=== PATIENT | female | born 1975 | race Caucasian/White ===

== ENCOUNTER → 2018-03-21 12:36 | Outpatient (CLI) | payer BC, SELFPAY ==
--- NOTE | 2018-03-21 12:55 | XR_ITS ---
XR shoulder RT min 2V Ordering Physician: Shellie Browne MD Patient Age: 42 years: Female HISTORY: ITS.REASON: BICEPS TENDONITIS ON RIGHT fell 2 months ago TECHNIQUE: 3 view right shoulder COMPARISON : FINDINGS Glenohumeral joint is intact.. AC joint appears intact and unremarkable as well There is roughening at the cap of the greater tuberosity which reflects degenerative changes and likely sequela of impingement . The slightly long acromion has slight downward sloping on the frontal projection which may contribute to such. Minor degenerative facet changes lower C-spine. IMPRESSION: ......... . No fracture or acute findings. Glenohumeral joint and AC joint intact Roughening at cap of greater tuberosity.-With Tip of the downward sloping of acromion resides just above this. This anatomy may lend itself to impingement symptoms & sequela
== END ==
PROVIDERS: PCP Family Medicine; Visit Provider Family Medicine
DX: M75.21 Bicipital tendinitis, right shoulder (principal)
CPT/HCPCS: 73030

== ENCOUNTER → 2018-04-29 08:36 | Outpatient (CLI) | payer BC, SELFPAY ==
--- NOTE | 2018-04-29 08:40 | MM_ITS ---
MM Dig screening mamm BI w/CAD CAD Screening COMPARISON: Digital mammograms with CAD 12/17/2016 and 08/15/2015 INDICATION: There is a history of breast cancer patient maternal aunt. TECHNIQUE: Standard CC and MLO images were obtained. R2 CAD reviewed. FINDINGS: Moderate fibroglandular densities are seen in the subareolar regions of both breast. In addition there are stable nodular densities near the axilla tail is of both breast. These are likely intramammary nodes. There are few benign-appearing calcifications in each breast. There is no new or suspicious lesion in either breast and there are no suspicious microcalcifications. IMPRESSION: Stable exam no suspicious lesion seen BI-RADS Category: 2 Benign Finding(s) RECOMMENDED FOLLOW-UP: 1YR - 1 YEAR FOLLOW-UP (A letter has been sent to the patient regarding results of the study.)
== END ==
PROVIDERS: PCP Family Medicine; Visit Provider Nurse Practitioner Obstetrics & Gynecology
DX: Z12.31 Encounter for screening mammogram for malignant neoplasm of breast (principal)
CPT/HCPCS: 77067

== ENCOUNTER → 2019-10-12 08:35 | Outpatient (CLI) | payer BC, SELFPAY ==
--- NOTE | 2019-10-12 08:35 | MM_ITS ---
PROCEDURE: MM DIG SCREENING MAMM BI W/CAD Digital Breast Tomosynthesis Included CLINICAL INDICATION: screening xmg There is a history of breast cancer in the patient's maternal aunt. There has been a 80 lb weight loss since previous bariatric surgery November 2018. COMPARISON: [facility] DIG MAMM-SCREEN JIMMY from 08/15/2015 [facility] DIG MAMM-SCREEN JIMMY W/CAD from 12/17/2016 [facility] MM Dig screening mamm BI w/CAD from 04/29/2018 TECHNIQUE: Standard CC and MLO images and 3D Tomosynthesis was obtained. R2 CAD reviewed. FINDINGS: Moderate scattered somewhat heterogenic fibroglandular densities are seen in both breasts. There are stable nodular densities in the axillary tail and upper central portion right breast and similar densities near the axillary tail left breast likely intramammary nodes. There is mild ductal hyperplasia in the subareolar regions bilaterally and this has been noted previously. There are few scattered benign-appearing microcalcifications in each breast. There is faint vascular calcification in each breast. There is no suspicious lesion and no suspicious microcalcifications. IMPRESSION: Mild to moderate heterogenic breast density with no suspicious lesions seen BI-RAD Category: 2 Benign Finding(s) FOLLOW-UP: 1YR 1 Year Follow-up (A letter has been sent to the patient regarding results of the study.) Dictated by: Dr. Henrry Corley MD 10/12/2019 12:[address] Henrry Corley MD in [place] 10/12/2019 12:32
== END ==
PROVIDERS: PCP Family Medicine; Visit Provider Nurse Practitioner Obstetrics & Gynecology
DX: Z12.31 Encounter for screening mammogram for malignant neoplasm of breast (principal)
CPT/HCPCS: 77063; 77067

== ENCOUNTER → 2019-11-23 08:10 | Outpatient (POV) | payer BC, SELFPAY | PROVIDERS: PCP Family Medicine; Visit Provider Dermatology | DX: Z00.00 Encounter for general adult medical examination without abnormal findings (principal) ==

== ENCOUNTER → 2021-05-09 16:50 | Outpatient (CLI) | payer BC, SELFPAY | PROVIDERS: PCP Family Medicine; Visit Provider Nurse Practitioner | DX: U07.1 COVID-19 (principal) | CPT/HCPCS: C9803; U0003; U0005 ==

== ENCOUNTER → 2021-05-15 13:50 | Outpatient (CLI) | payer BC, SELFPAY | PROVIDERS: Visit Provider Nurse Practitioner | DX: U07.1 COVID-19 (principal) | CPT/HCPCS: C9803; U0003; U0005 ==

== ENCOUNTER → 2021-07-31 07:59 | Outpatient (CLI) | payer BC, SELFPAY ==
--- NOTE | 2021-07-31 08:00 | MM_ITS ---
PROCEDURE INFORMATION: Exam: MG Bilateral Screening 3D Mammography Exam date and time: 07/31/2021 7:57 AM Age: 46 years old Clinical indication: Encounter for screening mammogram for malignant neoplasm of breast. Maternal aunt and paternal aunt had breast cancer. TECHNIQUE: Imaging protocol: Bilateral Screening tomosynthesis and 2D mammography including computer-aided detection (CAD) when performed. COMPARISON: 1. MG MM DIG SCREENING MAMM BI W/CAD 10/12/2019 8:38 AM 2. MG [facility] MM Dig screening mamm BI w/CAD 04/29/2018 8:59 AM 3. MG [facility] DIG MAMM-SCREEN JIMMY W/CAD 12/17/2016 8:35 AM 4. MG [facility] DIG MAMM-SCREEN JIMMY 08/15/2015 8:25 AM FINDINGS: MAMMOGRAPHY: Breast composition: The breast tissue is heterogeneously dense, which may obscure small masses. Mass: No suspicious masses. Architectural distortion: None. Calcifications: No suspicious calcifications. Asymmetric density: None. Skin thickening: None. Axillary adenopathy: Stable borderline thickened bilateral axillary nodes since 04/29/2018. Other: Stable bilateral dilated retroareolar ducts on both sides. IMPRESSION: No mammographic evidence of malignancy. Annual screening is recommended unless otherwise clinically indicated. ASSESSMENT: BI-RADS Category 2: Benign
== END ==
PROVIDERS: PCP Family Medicine; Visit Provider Nurse Practitioner Obstetrics & Gynecology
DX: Z12.31 Encounter for screening mammogram for malignant neoplasm of breast (principal)
CPT/HCPCS: 77063; 77067

== ENCOUNTER → 2021-11-06 15:08 | Outpatient (POV) | payer BC, SELFPAY | PROVIDERS: Visit Provider Dermatology | DX: Z00.00 Encounter for general adult medical examination without abnormal findings (principal) ==

== ENCOUNTER → 2022-03-09 10:21 | Outpatient (CLI) | payer BC, SELFPAY ==
[2022-03-09 11:11] LABS: Hemoglobin A1C 5.4 % (4.0-6.0)
[2022-03-09 11:18] LABS: Chloride 102 mmol/L (98-107); Potassium 4.2 mmoL/L (3.5-5.1); Sodium 140 mmol/L (136-145)
[2022-03-09 11:21] LABS: Alanine Aminotransferase 23 U/L (12-78); Albumin Level 4.1 g/dl (3.5-5.0); Albumin/Globulin Ratio 1.4 (1.1-1.8); Alkaline Phosphatase 110 U/L (38-126); Anion Gap 15.2 mEq/L (5-15); Aspartate Amino Transferase 22 U/L (14-36); Bilirubin,Total 0.5 mg/dl (0.2-1.3); Blood Urea Nitrogen 13 mg/dl (7-17); Calcium 9.5 mg/dl (8.4-10.2); Carbon Dioxide 27 mmol/L (22.0-30.0); Estimated Glomerular Filt Rate 90 ml/min (>60); GFR (African American) 109 ML/MIN (>60); Glucose 85 mg/dl (74-100); Iron 127 ug/dL (37-170); Total Protein,Serum 7.1 g/dl (6.3-8.2)
[2022-03-09 11:30] LABS: Total Iron Binding Capacity 280 ug/dL (265-497)
[2022-03-09 11:38] LABS: Triiodothryronine (T3) Uptake 30 % (23.5-40.5)
[2022-03-09 11:39] LABS: Free Thyroxine Index 2.6 ug/dL (5.93-13.13); T4 (Thyroxine) 8.6 ug/dl (5.53-11.0)
[2022-03-09 11:52] LABS: Thyroid Stimulating Hormone 2.02 uIU/mL (0.465-4.68)
[2022-03-09 12:04] LABS: Basophils # 0.1 K/mm3 (0-0.2); Basophils % 1.2 % (0.1-2.0); Eosinophils # 0.4 K/mm3 (0.0-0.4); Eosinophils % 3.1 % (0.1-12.0); Hematocrit 45.9 % (37.0-47.0); Hemoglobin 14.6 g/dL (12.2-16.2); Lymphocytes # 2.2 K/mm3 (0.7-4.5); Lymphocytes % 19.6 % (10-50); Mean Corpuscular HGB Conc 31.8 g/dL (31.8-35.4); Mean Corpuscular Hemoglobin 29.9 pg (27.0-31.2); Mean Corpuscular Volume 94.1 fl (81-99); Mean Platelet Volume 9.1 fl (7.4-10.4); Monocytes # 0.5 K/mm3 (0.1-1.0); Monocytes % 4.7 % (1.7-9.3); Neutrophils # 8.1 K/mm3 (1.8-7.8); Neutrophils % 71.4 % (37.0-80.0); Platelet Count 342 K/mm3 (142-424); Red Blood Count 4.88 M/mm3 (4.20-5.40); Red Cell Distribution Width 13.3 % (11.5-17.5); White Blood Count 11.3 K/mm3 (4.8-10.8)
[2022-03-09 12:28] LABS: Vitamin B12 718 pg/mL (239-931)
[2022-03-10 08:09] LABS: Prolactin 12.3 ng/mL (4.8-23.3); Thyroid Peroxidase Antibodies 11 IU/mL (0-34)
[2022-03-12 22:11] LABS: Testosterone, Total, LC/MS 19.1 ng/dL (.)
[2022-03-17 18:42] LABS: 1,25 Dihydroxy Vitamin D 44 pg/mL (.); 1,25-Dihydroxy, Vitamin D-2 <10 pg/mL (.); 1,25-Dihydroxy, Vitamin D-3 44 pg/mL (.)
== END ==
PROVIDERS: PCP Family Medicine; Visit Provider Nurse Practitioner Psychiatric/Mental Health
DX: Z00.00 Encounter for general adult medical examination without abnormal findings (principal); Z79.899 Other long term (current) drug therapy; R53.83 Other fatigue
CPT/HCPCS: 36415; 80053; 82607; 82652; 83036; 83540; 83550; 84146; 84402; 84403; 84436; 84443; 84479; 85025; 86376; 87275; 87276

== ENCOUNTER 2022-05-12 16:08 | Emergency (ER) | payer BC, SELFPAY ==
[2022-05-12 16:30] VITALS: BP 114/78; PULSE 119; RESP 19; TEMP 36.8; O2SAT 98; BMI 38.9
[2022-05-12 16:46] LABS: UTC Influenza A Antigen Negative (Negative); UTC Influenza B Antigen Negative (Negative)
--- NOTE | 2022-05-12 16:47 | EXP.UTC ---
Discharge Plan Disposition Patient Disposition: Home, Self-Care Condition: Good Prescriptions Prescriptions: New promethazine 25 mg tablet 25 mg PO TID PRN (Reason: nausea and vomiting) Qty: 10 0RF No Action Mirena 20 mcg/24 hr (5 years) intrauterine device 20 mcg INTRAUTERI ONCE levocetirizine 5 mg tablet 5 mg PO Label Comments: TAKE 1 TABLET BY MOUTH ONCE DAILY omeprazole 20 mg capsule,delayed release(DR/EC) 20 mg PO Trintellix 10 mg tablet 10 mg PO .COMPLEX Qty: 30 1RF Rx Instructions: 10 mg PO take 1/2 tablet for 10 days; then increase to 1 tablet; vitamin B complex Capsule 1 cap PO DAILY calcium carbonate [Calcium 600] 600 mg calcium (1,500 mg) tablet 600 mg PO DAILY cholecalciferol (vitamin D3) 1,000 UNIT capsule 1,000 unit PO DAILY Referrals Follow up/Referrals: Adolfo Granados MD [Primary Care Provider] - See instructions Activity Restrictions/Add. Instructions Additional Instructions/Restrictions: Drink extra fluids with and between meals. If you have difficulty drinking, try very small amounts of water or suck on ice chips. ? Avoid fruit juices, as these do not replace minerals and can actually increase diarrhea. ? Children and adults can use sports drinks to replenish electrolytes. Younger children and infants should use products formulated for children, like oral rehydration solutions. ? Eat food in small amounts and let your stomach recover. ? Get lots of rest. You may feel tired or weak. ? No greasy or fried foods for the next 24-48 hours BRAT diet Bananas Rice Apples and [place] ? Make sure to drink plenty of liquids ? Return if needed ? Straight to ER if any life threatening symptoms ? Zofran as prescribed ? You was given an outpatient order for diarrhea panel, please collect specimen and bring back to outpatient lab then call back to the [facility] or follow up with family doctor for results ? Follow up with family doctor in the next 48-72 hours if no improvement or any worsening of symptoms Clinical Impressions Clinical Impression: Nausea vomiting and diarrhea Instructions Patient Instructions: Diarrhea, Nausea and Vomiting-Adult, Promethazine Discharge ED Provider: Judy Del Rio [facility] General Stated complaint: nausea, D/V Mode of Arrival: Ambulatory Source of Information: Patient Limitations: No Limitations Time Seen by Provider: 05/12/22 16:47 Description of Symptoms (Recalled from Triage Doc. by RN): PATIENT C/O VOMITING AND DIARRHEA THAT STARTED YESTERDAY HEENT Symptoms (Recalled from RN notes): No Resp Symptoms (Recalled from RN notes): No Skin Symptoms (Recalled from RN notes): No MS Symptoms (Recalled from RN notes): No Functional Status (Recalled from RN notes): WNL History of Present Illness Provider Complaint: Patient states that she thinks she either has the stomach bug or the flu States that she started yesterday with N/V/D and has continued to have it into today States that she is feeling a little better but still having nausea and not able to keep anything down Related Data Home Medications Medication Instructions Recorded Confirmed cholecalciferol (vitamin D3) 25 1,000 unit PO DAILY Supplement 09/21/17 04/17/22 mcg (1,000 unit) capsule levonorgestrel 20 mcg/24 hours (8 20 mcg intrauterine ONCE 05/08/18 04/17/22 yrs) 52 mg intrauterine device control (Mirena) levocetirizine 5 mg tablet 5 mg PO 10/29/19 04/17/22 omeprazole 20 mg capsule,delayed 20 mg PO 10/29/19 04/17/22 release calcium carbonate 600 mg calcium 600 mg PO DAILY 07/31/21 04/17/22 (1,500 mg) tablet (Calcium) vitamin B complex 1 cap PO DAILY 07/31/21 04/17/22 Previous Rx's Medication Instructions Recorded vortioxetine 10 mg tablet 10 mg PO .COMPLEX #30 tabs 04/12/22 (Trintellix) promethazine 25 mg tablet 25 mg PO TID PRN nausea and
[2022-05-12 17:30] VITALS: BP 114/78; PULSE 119; RESP 19; TEMP 36.8; O2SAT 98
[2022-05-12 17:44] LABS: Adenovirus F 40/41, stool Not Detected (NotDetected); Astrovirus Not Detected (NotDetected); Campylobacter Not Detected (NotDetected); Cryptosporidium Not Detected (NotDetected); Cyclospora Cayetanesis Not Detected (NotDetected); Entamoeba histolytica Not Detected (NotDetected); Enteroaggregative E coli Not Detected (NotDetected); Enteropathogenic E coli Not Detected (NotDetected); Enterotoxigenic E coli Not Detected (NotDetected); Giardia lamblia Not Detected (NotDetected); Plesimonas Shigalloides, PCR Not Detected (NotDetected); Rotavirus A Not Detected (NotDetected); Salmonella, PCR Not Detected (NotDetected); Sapovirus Not Detected (NotDetected); Shiga-like toxin E coli Not Detected (NotDetected); Shigella Enterovasive E coli Not Detected (NotDetected); Vibrio Cholerae Not Detected (NotDetected); Vibrio, PCR Not Detected (NotDetected); Yersinia Entercolitica, PCR Not Detected (NotDetected)
[2022-05-12 22:06] LABS: Clostridium Difficile A/B, PCR Detected (NotDetected); Norovirus Detected (NotDetected)
== END 2022-05-12 17:34 | disposition home or self-care (01) ==
PROVIDERS: Emergency Provider Nurse Practitioner; PCP Family Medicine
DX: R11.2 Nausea with vomiting, unspecified (principal)
CPT/HCPCS: 87507; 87804; 99212; 99213; G0463

== ENCOUNTER 2023-06-24 14:09 | Outpatient (CLI) | payer BC, SELFPAY ==
[2023-06-24 14:35] LABS: Basophils % 0.4 % (0.1-2.0); Eosinophils # 0.4 K/mm3 (0.0-0.4); Eosinophils % 3.3 % (0.1-12.0); Hematocrit 45.5 % (37.0-47.0); Hemoglobin 15.3 g/dL (12.2-16.2); Lymphocytes # 3.5 K/mm3 (0.7-4.5); Mean Corpuscular HGB Conc 33.7 g/dL (31.8-35.4); Mean Corpuscular Hemoglobin 31.1 pg (27.0-31.2); Mean Corpuscular Volume 92.4 fl (81-99); Mean Platelet Volume 8.4 fl (7.4-10.4); Monocytes # 0.6 K/mm3 (0.1-1.0); Monocytes % 4.9 % (1.7-9.3); Neutrophils # 7.9 K/mm3 (1.8-7.8); Neutrophils % 63.4 % (37.0-80.0); Platelet Count 296 K/mm3 (142-424); Red Blood Count 4.92 M/mm3 (4.20-5.40); Red Cell Distribution Width 13.2 % (11.5-17.5); White Blood Count 12.5 K/mm3 (4.8-10.8)
[2023-06-24 15:07] LABS: Chloride 107 mmol/L (98-107); Potassium 4.4 mmoL/L (3.5-5.1); Sodium 138 mmol/L (136-145)
[2023-06-24 15:09] LABS: Alanine Aminotransferase 30 U/L (12-78); Anion Gap 6.4 mEq/L (5-15); Aspartate Amino Transferase 26 U/L (14-36); Bilirubin,Unconjugated 0.1 mg/dL (0.0-1.1); Blood Urea Nitrogen 13 mg/dl (7-17); Carbon Dioxide 29 mmol/L (22.0-30.0); Estimated Glomerular Filt Rate 89 ml/min (>60); GFR (African American) 108 ML/MIN (>60)
[2023-06-24 15:10] LABS: Albumin Level 4.2 g/dl (3.5-5.0); Alkaline Phosphatase 107 U/L (38-126); Bilirubin,Direct 0.3 mg/dl (0.0-0.4); Bilirubin,Indirect 0.1 mg/dL (0.0-0.9); Bilirubin,Total 0.4 mg/dl (0.2-1.3); Calcium 9.3 mg/dl (8.4-10.2); Chol/HDL Ratio 5.9 (1-3.5); Cholesterol 219 mg/dl (140-200); Glucose 95 mg/dl (74-100); HDL Cholesterol 37 mg/dl (40-60); Magnesium 1.9 mg/dl (1.6-2.3); Total Protein,Serum 7.4 g/dl (6.3-8.2); Triglycerides 197 mg/dl (30-150); VLDL Cholesterol 39 mg/dL (0-40)
[2023-06-24 15:21] LABS: Direct LDL Cholesterol 135.87 mg/dL (100-129)
[2023-06-24 15:25] LABS: Free T4 (Free Thyroxine) 0.85 ng/dl (0.78-2.19)
[2023-06-24 15:41] LABS: Thyroid Stimulating Hormone 2.01 uIU/mL (0.465-4.68)
== END 2023-06-24 23:59 ==
LOC: LAB 14:10
PROVIDERS: PCP Family Medicine; Visit Provider Internal Medicine
DX: R00.2 Palpitations (principal); R06.00 Dyspnea, unspecified; R42 Dizziness and giddiness; R94.31 Abnormal electrocardiogram [ECG] [EKG]
CPT/HCPCS: 36415; 80048; 80061; 80076; 83735; 84439; 84443; 85025; 93270

== ENCOUNTER 2023-07-09 07:16 | Outpatient (CLI) | payer BC, SELFPAY ==
--- NOTE | 2023-07-09 07:19 | CA_ITS ---
APPROVED REPORT EXAM: Comprehensive 2D, Doppler, and color-flow Echocardiogram Alcohol Law Enforcement Agent: CHRSI Burt, RVS Ht: 5 ft 10 in Wt: 282lbs BSA: 2.42 BP: 141/83 mmHg Indications: Abn EKG, Palpitations,Smoker, SOB Echo Enhancing Agent Comments: Poor acoustics throughout exam due to patient factors 2D Dimensions IVSd 1.38 cm LVEF (Visual) 79.70 % PWd 0.97 cm LA Volume 73.00 mL LVDd 5.26 cm LA Volume Index 30.618323 mL/m2 (M/F) 16-34 LVDs 2.70 cm Left Atrium 3.83 cm M-Mode Dimensions LA Diam 3.75 cm (1.9-4.0) EPSs 0.72 cm LV Diastology E Decel Time 210 (160-240 msec) E/A Ratio 1.41 Aortic Valve PIEDAD Index 0.85 cm2/m2 AoV Peak Danny. 138.0 (50-130 cm/s) AO Peak GR. 7.70 mmHg AO Mean GR. 3.90 (<5 mmHg) AO VTI 30.3 (18-25 cm) PIEDAD (VTI) 2.11 (2.5-4.5 cm2) Mitral Valve MV A Velocity 66.0 (40-130 cm/s) E/A Ratio 1.41 Left Ventricle The left ventricle is normal size. The left ventricular systolic function is normal. The left ventricular ejection fraction is within the normal range. There is normal left ventricular wall thickness. There is normal LV segmental wall motion. The left ventricular diastolic function is normal. LVEF is 60%. Right Ventricle The right ventricle is normal size. The right ventricular systolic function is normal. Atria The left atrium size is normal. The right atrium size is normal. There is no Doppler evidence of interatrial shunt. Aortic Valve The aortic valve opens well. There is no aortic valvular stenosis. No aortic regurgitation is present. Mitral Valve The mitral valve is normal in structure. No evidence of mitral valve stenosis. Trace mitral regurgitation. Tricuspid Valve The tricuspid valve leaflets are thin and pliable. Trace tricuspid regurgitation. There is insufficient TR jet to estimate RVSP. Pulmonic Valve The pulmonary valve is normal in structure. Trace pulmonic regurgitation. Great Vessels The aortic root is normal in size. The ascending aorta is normal in size. IVC is normal in size and collapses >50% with inspiration. Pericardium There is no pericardial effusion. Other Information Study Quality: Fair Conclusion Normal biventricular systolic function. No significant valvular stenosis or regurgitation. Electronically signed by : Ade Alcaraz MD 07/12/2023 00:23:24
--- NOTE | 2023-07-09 08:35 | CT_ITS ---
APPROVED REPORT Sliding Joint Maker: CLINICAL INDICATION Chest Pain TECHNIQUE Image Acquisition: A 128 slice MDCT scanner ([employer]) was used for data acquisition. A noncontrast coronary calcium scan was performed. A CT attenuation threshold of 130 Hounsfield units (HU) was used for the detection of calcium in contiguous voxels of 1 sq mm in area to be counted as individual lesions. Bolus tracking in the ascending aorta with a threshold of 180 HU was performed. Immediately afterwards, ECG synchronized cardiac CT was then performed from the cardiac base to apex using retrospective gating with ECG tube current modulation. A total of 85 mL of Isovue 370 mg/mL contrast medium was administered at 5 mL/sec followed by a saline flush using a biphasic injection protocol. A tube voltage of 120 KVp was used. The patient received the following medications prior to the cardiac CT. 25 mg of oral metoprolol 0.8 mg of sublingual nitroglycerin The average heart rate at the time of acquisition was 60 bpm and regular. Image Reconstruction Transaxial images were reconstructed at 0.67 mm slide thickness. Data was reviewed interactively on an advanced workstation capable of 2 and 3-dimensional displays in all conventional reconstruction formats, including multiplanar reformations, maximum intensity projections, curved multiplanar reformations, and volume rendered reconstructions. When applicable, selected routine images describing the relevant coronary anatomy and pathology were saved and sent to PACS. Complications None Technical Quality Overall image quality was good. Coronary artery opacification was adequate. Total DLP (Dose-Length Product) is 1405.7 mGy-cm. The reported value represents the total of one or more individual components during the CT acquisition of this date and at this time, and as such, the same value may appear in more than one CT report depending on the interpreting/reporting physicians. COMPARISON None FINDINGS CT Coronary Calcium Scoring LMA (Left Main Artery) = 0 LAD (Left Anterior Descending) = 0 LCX (Left Coronary Circumflex) = 0 RCA (Right Coronary Artery) = 0 Total Calcium Score = 0 using the AJ-130 method. The interpretation of the calcium heart score is based on the following continuum*: 0 = no calcified plaque detected (risk of coronary artery disease is very low ??? less than 5%) 1-10 = calcium detected in extremely minimal levels (risk of coronary diseases is still low ??? less than 10%) 11-100 = mild levels of plaque detected with certainty (mild or minimal narrowing of heart arteries is likely) 101-400 = definite,at least moderate levels of plaque detected (relatively high risk of a heart attack within 3-5 years) >401-999 = extensive levels of plaque detected (high risk of heart attack, high levels of vascular disease are present, high likelihood of at least one significant coronary narrowing) *The calcium heart score quantifies the burden of coronary calcification/plaque in the coronary arteries. The calcium heart score is not able to evaluate the presence or burden of non-calcified (i.e. soft) plaque. There is no identifiable calcification in the aortic valve, mitral annulus or mitral valve, pericardium, or myocardium. Coronary CT Angiography The coronary arterial system is right dominant. Quantitative Stenosis Grading: Left Main (LM): The left main originates normally from the left sinus of Valsalva. The LM bifurcates into the left anterior descending artery and left circumflex artery. The LM is patent with no evidence of atherosclerosis. Left Anterior Descending (LAD) and Diagonal Branches: The LAD gives off 4 diagonal branch. The LAD and its branches are patent with no evidence of atherosclerosis. There is no evidence of LAD-myocardial bridge. Left Circumflex (LCX) and Obtuse Marginals (OM): The LCX gives off 1 Obtuse Marginal (OM) branch. The LCX and its branches are patent with no evidence of atherosclerosis. Right Coronary Artery (RCA): The RCA originates normally from the right sinus of Valsalva. The RCA gives off a posterior descending artery (PDA) and posterolateral (PL) branches. The RCA and its branches are patent with no evidence of atherosclerosis. Non-Coronary Cardiac Findings: Analysis of the left ventricular (LV) structure and function was performed after 3-D reconstruction of the LV from axial images, with user-corrected automatic contouring for assessment of LV volumes and user-defined reconstruction from oblique planes for measurement of 3-D cardiac structure and function. -The left ventricle systolic function is normal. -There is no left atrial appendage filling defect. Two right pulmonary veins and two left pulmonary veins drain normally into the left atrium. -No pericardial thickening or calcification. -Central and branch pulmonary arteries in the [id number] are unremarkable. -Thoracic aorta within the visualized thoracic aortic-branches in the [id number] is unremarkable. Extracardiac Structures No significant extra-cardiac findings. Note, however, that this study is focused on the cardiac findings. IMPRESSION -No coronary calcification with an Agatston score = 0 using the AJ-130 method. -No evidence of significant flow-limiting atherosclerosis of the coronary arteries. -No evidence of coronary anomalies or myocardial bridges. -CAD-RADS 0. Management recommendations per ACC/AHA guidelines*, as clinically appropriate. *Recommendations: CAD RADS 0: Reassurance. Consider non-atherosclerotic causes of chest pain. CAD RADS 1: Consider non-atherosclerotic causes of chest pain. Consider preventive therapy and risk factor modification. CAD RADS 2: Consider non-atherosclerotic causes of chest pain. Consider preventive therapy and risk factor modification, particularly for patients with nonobstructive plaque in multiple segments. CAD RADS 3: Consider further functional testing. Consider symptom-guided anti-ischemic and preventive pharmacotherapy as well as risk factor modification per published guideline statements. CAD RADS 4A: Consider further functional testing or invasive coronary angiography with revascularization per published guideline statements. Consider symptom-guided anti-ischemic and preventive pharmacotherapy as well as risk factor modification per published guideline statements. CAD RADS 4B: Invasive coronary angiography recommended with revascularization per published guideline statements. Consider symptom-guided anti-ischemic and preventive pharmacotherapy as well as risk factor modification per published guideline statements. CAD RADS 5: Consider invasive angiography and/or viability assessment with revascularization per published guideline statements. Consider symptom-guided anti-ischemic and preventive pharmacotherapy as well as risk factor modification per published guideline statements. CRITICAL RESULT None COMMUNICATION Per this written report The coronary and cardiac findings of this CCTA were reviewed, reported, and signed by Demetris Alcaraz MD (Loading Inspector) Conclusion Electronically signed by : Ade Alcaraz MD 07/11/2023 23:15:05
[2023-07-09 08:50] VITALS: BMI 45.1
[2023-07-09] MEDS: METOPROLOL TARTRATE 25MG TABLET *IVABRADINE+METOPROLOL REGIMINE 25 MG PO (09:05)
[2023-07-09 09:37] LABS: Urine Pregnancy, HCG Qual. Negative (Negative)
[2023-07-09 10:00] VITALS: BP 138/92; PULSE 72; RESP 16; O2SAT 98
[2023-07-09] MEDS: NITROGLYCERIN 0.4MG SL TABLET 0.800000000000000044 MG SL (10:00)
[2023-07-09 10:03] VITALS: BP 131/85
[2023-07-09 10:10] VITALS: BP 106/65; PULSE 64; RESP 16; O2SAT 97
[2023-07-09] MEDS: IOPAMIDOL-370 (76%);100ML BOTTLE 85 ML IV (10:16)
[2023-07-09] MEDS: 0.9 % SODIUM CHLORIDE 50 ML VIAL IV (10:17)
[2023-07-09] MEDS: SODIUM CHLORIDE 0.9% 10ML SYR (RAD ONLY) 10 ML IV (10:17)
[2023-07-09 10:20] VITALS: BP 131/87; PULSE 60; RESP 16; O2SAT 98
== END 2023-07-09 10:36 | disposition home or self-care (01) ==
LOC: RT 07:18 → RAD 08:58
PROVIDERS: PCP Family Medicine; Visit Provider Internal Medicine
DX: R06.00 Dyspnea, unspecified (principal); R00.2 Palpitations; R42 Dizziness and giddiness; R94.31 Abnormal electrocardiogram [ECG] [EKG]
CPT/HCPCS: 75571; 75574; 81025; 93306; Q9967

== ENCOUNTER 2023-07-29 07:56 | Outpatient (CLI) | payer BC, SELFPAY ==
--- NOTE | 2023-07-29 08:11 | MM_ITS ---
PROCEDURE INFORMATION: Exam: MG Bilateral Screening 3D Mammography Exam date and time: 07/29/2023 8:01 AM Age: 48 years old Clinical indication: Screening examinationmammogram TECHNIQUE: Imaging protocol: Bilateral Screening tomosynthesis and 2D mammography including computer-aided detection (CAD) when performed. COMPARISON: No relevant prior studies available. FINDINGS: MAMMOGRAPHY: Breast composition: The breasts are heterogeneously dense, which may obscure small masses. Mass: None. Architectural distortion: None. Calcifications: No suspicious calcifications. Asymmetric density: None. Skin thickening: None. Axillary adenopathy: None. IMPRESSION: No mammographic evidence of malignancy. Annual screening is recommended unless otherwise clinically indicated. ASSESSMENT: BI-RADS Category 1: Negative
== END 2023-07-29 23:59 ==
LOC: RAD 07:56
PROVIDERS: PCP Family Medicine; Visit Provider Nurse Practitioner Obstetrics & Gynecology
DX: Z12.31 Encounter for screening mammogram for malignant neoplasm of breast (principal)
CPT/HCPCS: 77063; 77067

== ENCOUNTER 2023-10-14 10:51 | Day surgery (SDC) | payer BC, SELFPAY ==
[2023-10-10 14:29] VITALS: BMI 46.0
[2023-10-14] VITALS (7 sets, daily range): BP systolic 116–144; BP diastolic 72–96; PULSE 70–77; RESP 12–18; TEMP 36.3–36.9; O2SAT 93–95; BMI 45.1
[2023-10-14 11:36] LABS: Urine Pregnancy, HCG Qual. Negative (Negative)
[2023-10-14] MEDS: LACTATED RINGERS 1000ML 1,000 ML 25 ML IV (11:45)
--- NOTE | 2023-10-14 11:54 | EXP.ANES.CKL ---
[facility] Disclaimer: The information contained in this section may have been updated after the patient was seen, as this information can be updated by other users. Medical History Abnormal electrocardiogram [ECG] [EKG] GERD (gastroesophageal reflux disease) Hypertension Generalized anxiety disorder Recurrent major depression resistant to treatment Surgical History History of gastric bypass History of adenoidectomy History of tympanostomy tube placement Family History Other No significant family history Social History Smoking Status: Current some day smoker tobacco type: cigarettes packs per day: 1 quit status: considering quitting second hand exposure: No alcohol intake: never substance use type: denies use counseling given: No current occupational status: employed Travel in the last 8 weeks: None adopted: No caregiver/support person: Yes (for her son) foster care: No household members: spouse housing: house lives independently: Yes marital status: number of children: 1 number of grandchildren: 0 education level: college service: No current occupation: consolidation accountant at [employer] pets and animals: Yes pets and animals: cat(s), dog(s) and bird(s) Hx Recent Travel: No caffeine: Yes physical activity: none tin/jehovah's witness: Alevism special tin needs: No working smoke detector in home: Yes fire extinguisher in home: Yes carbon monox detector in home: Yes firearms in home: Yes do you feel safe at home: Yes victim of physical abuse: No victim of emotional abuse: No victim of sexual abuse: No would you like helpful sources: No [facility] Anesthesia Checklist Patient Identification Patient Identification: Arm Band and Verbal (Name & ) Structural Data Admitted From: Home Planned Operative Procedure/s: Colonoscopy Consent for Planned Operative Procedure(s) Verified: Yes Verified Documents: Surgical Consent and History and Physical NPO Status Verified Time NPO: 00:00 Chart Verification Results Verified: HCG Additional verifications Anesthesia Reactions: No Hx Blood Transfusions: No Blood Transfusion Reaction: No Airway Assessment Mallampati Score:: Class IV C-Spine Mobility Assessed: Yes TMJ Mobility Assessed: Yes Dentition: Good Dentition Neurological Assessment Level of Consciousness: Awake Hx Seizures: No Numbness or tingling in extremities: No Anesthesia Plan Anesthesia Risk discussed: Yes Anesthesia Plan: Verified ASA Class: III Anesthesia Type: MAC
--- NOTE | 2023-10-14 11:55 | P.PCN_ITS ---
Procedure: Date: 10/14/23 Patient Date of :: 1975 Procedure Performed:: Colonoscopy with polypectomy Indications:: Family history of colon polyps Note: The patient reports that her sister underwent colectomy secondary to 100s of polyps . Performing Provider:: Harsha Sanchez MD Referring Provider:: . Sedation:: Monitored anesthesia care Procedure:: After informed consent was obtained the patient was taken to the endoscopy suite. Sedation ensued after the patient was transferred to the left lateral decubitus position. Pulse, blood pressure, and oxygen saturation were monitored throughout the procedure. Digital rectal exam revealed no significant abnormality. The colonoscope was placed in position. The entire colon was evaluated. The colonoscope was carefully removed and the patient was t ransferred to recovery in stable condition. Please see findings and specimens below for detail. Findings:: Bowel preparation moderate to poor Mild spasticity Mild to moderate tortuosity Hemorrhoidal cushions/tags Scattered sigmoid diverticulosis Cluster of hyperplastic-appearing polyps within the rectum and within sigmoid Complex lobulated polyps (see specimens) Specimens:: Sessile lobulated 6 mm right colon polyp (hot snare) Sessile polyp at 60 cm (hot snare) Adjacent polyps at 45 cm (cold biopsy forceps) Adjacent complex lobulated polyps at 40 cm (hot snare) Adjacent polyps at 30 cm (hot snare) Recommendations:: Timing of repeat colonoscopy is pending pathology will likely be between 6-12 months with extended bowel preparation secondary to moderate to poor bowel preparation and size/nature/number of polyps. Complications:: No immediate Estimated blood obtained (mL): 1 Colonoscopy Component Colonoscopy Component Was a colonoscopy performed during today's procedure?: Yes Recommended follow up colonoscopy of at least 10 years?: No If no, follow up colonoscopy recommended in ___ years?: (See above) Reason for not recommending >/= 10 yr follow-up interval?: (See above)
== END 2023-10-14 13:18 | disposition home or self-care (01) ==
LOC: OUTP 10:51
PROVIDERS: PCP Family Medicine; Visit Provider Surgery
PROC: 0DJD8ZZ Inspection of Lower Intestinal Tract, Via Natural or Artificial Opening Endoscopic (ICD-10-PCS; CPT 45378; principal; 2023-10-14 12:00)
DX: Z12.11 Encounter for screening for malignant neoplasm of colon (principal); Z86.010 Personal history of colon polyps; K64.8 Other hemorrhoids; K57.30 Diverticulosis of large intestine without perforation or abscess without bleeding; D12.2 Benign neoplasm of ascending colon; D12.5 Benign neoplasm of sigmoid colon; K63.5 Polyp of colon
CPT/HCPCS: 45385; 45380; 81025; J3010; J7120

== ENCOUNTER 2023-12-03 07:33 | Outpatient (CLI) | payer BC, SELFPAY ==
[2023-12-03 07:48] LABS: Basophils # 0.1 K/mm3 (0-0.2); Basophils % 0.9 % (0.1-2.0); Eosinophils # 0.4 K/mm3 (0.0-0.4); Eosinophils % 3.7 % (0.1-12.0); Hemoglobin 14.8 g/dL (12.2-16.2); Lymphocytes # 2.7 K/mm3 (0.7-4.5); Lymphocytes % 24.8 % (10-50); Mean Corpuscular HGB Conc 33.6 g/dL (31.8-35.4); Mean Corpuscular Hemoglobin 31.7 pg (27.0-31.2); Mean Corpuscular Volume 94.5 fl (81-99); Mean Platelet Volume 8.6 fl (7.4-10.4); Monocytes # 0.5 K/mm3 (0.1-1.0); Monocytes % 4.8 % (1.7-9.3); Neutrophils # 7.1 K/mm3 (1.8-7.8); Neutrophils % 65.8 % (37.0-80.0); Platelet Count 293 K/mm3 (142-424); Red Blood Count 4.66 M/mm3 (4.20-5.40); Red Cell Distribution Width 13.8 % (11.5-17.5); White Blood Count 10.7 K/mm3 (4.8-10.8)
[2023-12-03 09:15] LABS: Alanine Aminotransferase 32 U/L (12-78); Albumin Level 3.9 g/dl (3.5-5.0); Albumin/Globulin Ratio 1.2 (1.1-1.8); Alkaline Phosphatase 93 U/L (38-126); Anion Gap 11.8 mEq/L (5-15); Aspartate Amino Transferase 21 U/L (14-36); Bilirubin,Total 0.6 mg/dl (0.2-1.3); Blood Urea Nitrogen 9 mg/dl (7-17); Calcium 9.3 mg/dl (8.4-10.2); Carbon Dioxide 28 mmol/L (22.0-30.0); Chloride 103 mmol/L (98-107); Estimated Glomerular Filt Rate 76 ml/min (>60); GFR (African American) 92 ML/MIN (>60); Globulin 3.2 g/dL (1.3-3.2); Glucose 91 mg/dl (74-100); Potassium 3.8 mmoL/L (3.5-5.1); Sodium 139 mmol/L (136-145); Total Protein,Serum 7.1 g/dl (6.3-8.2)
[2023-12-03 09:30] LABS: T4 (Thyroxine) 9.2 ug/dl (5.53-11.0)
[2023-12-03 09:43] LABS: Thyroid Stimulating Hormone 4.86 uIU/mL (0.465-4.68)
[2023-12-04 11:22] LABS: Immunoglobulin A, Qn 540 mg/dL (87-352)
[2023-12-04 17:04] LABS: Tissue Transglutaminase IgA Ab <2 U/mL (0-3)
== END 2023-12-03 23:59 | disposition home or self-care (01) ==
LOC: LAB 07:35
PROVIDERS: PCP Family Medicine; Visit Provider Physician Assistant
DX: K59.00 Constipation, unspecified (principal)
CPT/HCPCS: 36415; 80050; 80053; 82784; 83516; 84436; 84443; 85025